=== PATIENT | female | born 1965 | race Caucasian/White ===

== ENCOUNTER 2018-05-25 12:13 | Emergency (ER) | payer OTHER ==
[~2018-05-25] VITALS: Ht 154.9 cm; Wt 72.0 kg
[~2018-05-25 12:13] MED LIST: BLOOD PRESSURE MEDS; FERR27TA
[2018-05-25 12:22] VITALS: BP 165/75; PULSE 76; RESP 16; Ht 154.9 cm; Wt 72.0 kg
[2018-05-25] MEDS ORDERED: ONDANSETRON (ODT) 4 MG TAB ODT STA (13:54)
[2018-05-25] MEDS ORDERED: ONDA8TAB14 PO (13:55)
[2018-05-25] MEDS ORDERED: MECL-77 PO (13:55)
[2018-05-25] MEDS ORDERED: PRED20TA PO ×2 (13:58→14:42)
--- NOTE | 2018-05-25 13:58 | ERD ---
ER Documentation Chief Complaint Chief Complaint pt is bib self with spinning feeling x 3 days, nausea with quick movements HPI 53-year-old female presents with a spinning type sensation worse with head movement for the last 3 days. She went to [place] 2 days ago and had a head CT and additional studies was told she had vertigo related to inflammation in her ear. She is concerned that she was treated for dizziness and nausea but not given anything for inflammation. She is out of her medication and has persistent symptoms. Denies chest pain, shortness of breath, abdominal pain, urinary complaints, additional symptoms. Patient was hoping to see an ENT specialist here today for her vertigo. ROS All systems reviewed and are negative except as per history of present illness. Medications Home Meds Active Scripts Prednisone* (Prednisone*) 20 Mg Tab, 40 MG PO DAILY for 4 Days, TAB Start May 26, 2018 Prov:BRADFORD BURGOS MD 05/25/18 Ondansetron (Ondansetron Odt) 8 Mg Tab.rapdis, 8 MG PO Q6H PRN for NAUSEA AND/OR VOMITING, #10 TAB Prov:BRADFORD BURGOS MD 05/25/18 Meclizine Hcl* (Meclizine Hcl*) 25 Mg Tablet, 25 MG PO Q8H PRN for DIZZINESS, #20 TAB Prov:BRADFORD BURGOS MD 05/25/18 Reported Medications Ferrous Sulfate (Iron) 1 Tab Tablet 04/08/10 [Blood Pressure Meds] No Conflict Check 04/08/10 Discontinued Scripts Prednisone* (Prednisone*) 20 Mg Tab, 40 MG PO DAILY for 4 Days, TAB Prov:BRADFORD BURGOS MD 05/25/18 Allergies Allergies: Coded Allergies: No Known Allergies (Verified Allergy, Unknown, 04/08/10) PMhx/Soc History of Surgery: Yes (RIGHT EAR SX., ) Anesthesia Reaction: No Hx Neurological Disorder: No Hx Respiratory Disorders: No Hx Cardiac Disorders: Yes (ANEMIA) Hx Psychiatric Problems: No Hx Miscellaneous Medical Probl: No Hx Alcohol Use: No Hx Substance Use: No Hx Tobacco Use: No Smoking Status: Never smoker FmHx Family History: No diabetes, No coronary disease, No other Physical Exam Vitals Vital Signs Date Temp Pulse Resp B/P (MAP) Pulse Ox O2 O2 Flow FiO2 Time Delivery Rate 05/25/18 98.3 76 16 165/75 98 12:22 (105) Physical Exam Const: No acute distress. Well-appearing. Head: Atraumatic Eyes: Normal Conjunctiva and eyes Arleth and extraocular movements intact. No nystagmus. ENT: Normal External Ears, Nose and Mouth. Neck: Full range of motion. No meningismus. Resp: Clear to auscultation bilaterally Cardio: Regular rate and rhythm, no murmurs Abd: Soft, non tender, non distended. Normal bowel sounds Skin: No petechiae or rashes Back: No midline or flank tenderness Ext: No cyanosis, or edema Neur: Awake and alert. Normal gait. No cerebellar signs. Negative Romberg no pronator drift. Positive reproducible vertigo left greater than right. Negative cover uncover test. Psych: Normal Mood and Affect Results 24 hrs Current Medications Medications Dose Sig/Humberto Start Time Status Last (Trade) Ordered Route PRN Stop Time Admin Dose Reason Admin Meclizine 25 mg ONCE ONCE 05/25/18 DC 05/25/18 HCl PO 14:00 14:20 (Antivert) 05/25/18 14:01 Ondansetron 8 mg ONCE STAT 05/25/18 DC 05/25/18 HCl (Zofran ODT 13:54 14:19 Odt) 05/25/18 13:55 10 mg ONCE ONCE 05/25/18 DC 05/25/18 Dexamethasone IM 14:30 14:20 (Decadron) 05/25/18 14:31 Procedures/MDM Patient presents with signs and symptoms of peripheral vertigo. She is well- appearing and ambulatory without deficits. She had a normal CT 2 days ago by report. Patient shows no signs or symptoms of neurologic deficit, additional concerning signs or symptoms to suggest central patient's neurologic symptoms have been evaluated in the department and have stabilized. Patient is a ppropriate for outpatient management. No evidence of meningitis, intracranial bleed, seizure, stroke, or elevated intracranial pressure. Additionally, a HINTS exam was performed. The the patient had an abnormal Head Impulse test, with a quick saccade movement to catchup while maintaining a forward gaze. The patient also had a horizontal Nystagmus, indicative of an acute vestibular syndrome. Lastly, the patient's Test of Skew showed no vertical gaze corrections. The overall clinical picture does not suggest signs of a posterior stroke. Or emergent causes of presenting complaints.. We will resume treatment with Zofran, Antivert and a dose of 10mg decadron by request.. She will be referred to local ENT for further motion treatment. She will return for fevers, shortness of breath, chest pain, deficits, new worsening symptoms. The patient was stable with no new complaints during the ER course. Clinically, there is no current evidence to suggest meningitis, sepsis, acute abdomen, pneumonia, stroke, acute coronary syndrome, pulmonary embolism, aortic dissection or any other emergent condition appearing to require further evaluation or hospitalization. Patient counseled regarding my diagnostic impression and care plan. Prior to discharge all questions answered. Pt agrees with treatment plan and understands strict return precautions. Pt is instructed to follow up with primary care provider within 24-48 hours. Precautionary instructions provided including instructions to return to the ER if not improving or for any worsening or changing symptoms or concerns. Departure Diagnosis: Primary Impression: Vertigo Condition: Stable Patient Instructions: Inner Ear Problems: Causes of Dizziness (Vertigo), Vertigo, Unspecified Additional Instructions: Va al [place] doctor/ specialista para mas evaluacon en el proximo semana. posiblemente necesita autorizado de [place] doctor primario para specialista. Regresa para fiebre, o mas o nueva simptomas. BRADFORD BURGOS MD May 25, 2018 13:58
[2018-05-25] MEDS ORDERED: MECLIZINE 12.5 MG TAB PO ONE (14:00)
[2018-05-25] MEDS ORDERED: DEXAMETHASONE 10 MG/ML 1 ML INJ IM ONE (14:30)
== END 2018-05-25 14:45 | disposition home or self-care (01) ==
LOC: FTE 12:13
DX: R42 Dizziness and giddiness (principal); R11.0 Nausea
CPT/HCPCS: 96372; J1100; Z7502; Z7610